=== PATIENT | female | born 1965 | race Caucasian/White ===

== ENCOUNTER 2016-12-14 13:10 | Inpatient (IN) | payer OTHER ==
[~2016-12-14] VITALS: Ht 167.6 cm; Wt 102.3 kg
[~2016-12-14 13:10] MED LIST: ASPIR 8181 M1 PO; ASPIRIN325 MG PO; Biotin PO; CALCIUM 600 +1 EAC1 PO; CRESTOR10 MG PO; DIM PO; FISH OIL 1,2001 EAC4 PO; FLONASE16 G1 BOTH NARES; LOSARTAN POTASS50 MG PO; NAMENDA5 MG PO; NOHOMEMEDS; OMEPRAZOLE20 MG PO; PLAQUENIL200 MG PO; VITAMIN D-32000 UNIT PO; VITAMIN D5000 UNIT PO; Vitamin B Complex PO; ZYRTEC10 M3 PO
[2016-12-14 15:42] LABS: HEMATOCRIT 38.8 % (36.0-46.0); MCH 31.4 PG (29.0-34.0); MCV 92.2 FL (83-99); MEAN PLAT.VOLUME 10.2 uM^3 (9.5-12.4); PLATELET COUNT 91 K/uL (156-360); RBC DIS.WIDTH-SD 40.9 % (39-53); RED BLOOD COUNT 4.21 M/uL (3.80-5.20)
[2016-12-14 15:46] LABS: CHLORIDE 104 mEq/L (99-109); POTASSIUM 4.5 mEq/L (3.7-5.4); SODIUM 138 mEq/L (136-147)
[2016-12-14 15:47] LABS: GLUCOSE 105 mg/dL (70-99)
[2016-12-14 15:49] LABS: ANION GAP 11 MEQ/L (2-14)
[2016-12-14 15:51] LABS: GFR ESTIMATE (CALCULATED) 56 mL/min/
[2016-12-14 15:52] LABS: UREA NITROGEN (BUN) 13 mg/dL (9-23)
[2016-12-14] MEDS ORDERED: VITAMIN D32000 UNI1 PO (16:27)
[2016-12-14] MEDS ORDERED: SPIRONOLACTONE25 MG PO (16:28)
[2016-12-14] MEDS ORDERED: CARVEDILOL25 MG PO (16:28)
[2016-12-14] MEDS ORDERED: FUROSEMIDE40 MG PO (16:29)
[2016-12-14] MEDS ORDERED: ENTRESTO 97 MG1 EACH PO (16:29)
[2016-12-14] MEDS ORDERED: ZANTAC300 MG PO (16:29)
[2016-12-14] MEDS ORDERED: PREVIDENT 500056 GM DT (16:30)
[2016-12-14] MEDS ORDERED: FISH OIL 1,2001 EAC4 PO (16:30)
[2016-12-14 20:59] VITALS: BP 120/70
[2016-12-14 23:52] VITALS: BP 106/52
[2016-12-15 04:00] VITALS: BP 110/56
[2016-12-15 07:39] VITALS: BP 115/74
[2016-12-15 15:44] VITALS: BP 119/56
[2016-12-15 19:44] VITALS: BP 129/54
[2016-12-16 00:01] VITALS: BP 138/63
[2016-12-16 03:54] VITALS: BP 133/64
[2016-12-16 07:46] VITALS: BP 114/47
[2016-12-16 11:38] VITALS: BP 112/52
[2016-12-16 14:00] LABS: HDL CHOLESTEROL 43 MG/DL (Desirable>=50); LDL CHOLESTEROL 87 mg/dL (Desirable<100); NON-HDL CHOLESTEROL 124 mg/dL (Desirable<160); TOTAL CHOLESTEROL 167 mg/dL (Desirable<200); TRIGLYCERIDES 183 MG/DL (Normal: <150)
[2016-12-16] MEDS ORDERED: CLOPIDOGREL75 MG PO (14:22)
[2016-12-16] MEDS ORDERED: TYLENOL REGULA325 MG PO (14:22)
[2016-12-17 09:54] LABS: Estimated Average Glucose 117 mg/dL (70-123); HEMOGLOBIN A1c (GLYCOHEMOGLOB) 5.7 % HGB (Below 5.7)
== END 2016-12-16 15:00 | disposition home or self-care (01) | DRG 65 ==
LOC: EME 13:10 → EDOF 18:20 → 5SOUTH 20:55
PROVIDERS: Internal Medicine; Specialist
DX: I63.9 Cerebral infarction, unspecified (principal); I11.0 Hypertensive heart disease with heart failure; M32.9 Systemic lupus erythematosus, unspecified; I50.9 Heart failure, unspecified; G81.91 Hemiplegia, unspecified affecting right dominant side; E66.9 Obesity, unspecified; Z68.36 Body mass index [BMI] 36.0-36.9, adult; R29.810 Facial weakness; F17.210 Nicotine dependence, cigarettes, uncomplicated; J32.9 Chronic sinusitis, unspecified; J34.2 Deviated nasal septum; R20.2 Paresthesia of skin; R51 Headache
CPT/HCPCS: 70450; 70551; 71020; 80048; 80061; 83036; 85027; 93005; 93880; 99281; 99285; J1650

== ENCOUNTER 2017-06-26 15:27 | Emergency (ER) | payer OTHER ==
[~2017-06-26] VITALS: Ht 167.6 cm; Wt 101.6 kg
[~2017-06-26 15:27] MED LIST changes: +CARVEDILOL25 MG PO; +CLOPIDOGREL75 MG PO; +ENTRESTO 97 MG1 EACH PO; +FUROSEMIDE20 MG PO; +PREVIDENT 500056 GM DT; +SPIRONOLACTONE25 MG PO; +TYLENOL REGULA325 MG PO; +VITAMIN D32000 UNI1 PO; +ZANTAC300 MG PO
[2017-06-26 16:02] LABS: MCH 31.6 PG (29.0-34.0); MCHC 33.8 G/DL (30.0-36.0); MCV 93.3 FL (83-99); RBC DIS.WIDTH-CV 11.8 % (11.8-14.6); RBC DIS.WIDTH-SD 40.5 % (39-53); RED BLOOD COUNT 4.18 M/uL (3.80-5.20); WHITE BLOOD COUNT 5.6 K/uL (4.1-10.2)
[2017-06-26 16:11] LABS: CHLORIDE 105 mEq/L (99-109); POTASSIUM 3.7 mEq/L (3.7-5.4); SODIUM 140 mEq/L (136-147)
[2017-06-26 16:12] LABS: GLUCOSE 85 mg/dL (70-99)
[2017-06-26 16:14] LABS: ANION GAP 9 MEQ/L (2-14)
[2017-06-26 16:16] LABS: GFR ESTIMATE (CALCULATED) 50 mL/min/
[2017-06-26 16:17] LABS: UREA NITROGEN (BUN) 17 mg/dL (9-23)
[2017-06-26 16:20] LABS: TROP-I INTERPRETATION NEGATIVE; TROPONIN-I < 0.01 ng/mL (0.0-0.30)
[2017-06-26 16:49] LABS: HEMATOLOGY COMMENT 1 SN; IMM.PLATELET FRACTION 10.4 (1-7); MEAN PLAT.VOLUME 11.3 uM^3 (9.5-12.4); PLAT.SUFFICIENCY VERY DECREASED; PLATELET COUNT 46 K/uL (156-360)
[2017-06-26 19:21] VITALS: BP 143/74
[2017-06-26] MEDS ORDERED: CLOPIDOGREL75 MG PO (21:51)
[2017-06-26] MEDS ORDERED: EXTRA STRENGTH500 M1 PO (21:53)
[2017-06-26] MEDS ORDERED: TOPAMAX25 MG PO (21:55)
[2017-06-26] MEDS ORDERED: NEURONTIN300 MG PO (21:55)
== END 2017-06-26 19:22 | disposition left against medical advice (07) ==
LOC: EME 15:27
DX: R07.89 Other chest pain (principal); R00.2 Palpitations; R51 Headache; R06.00 Dyspnea, unspecified; I10 Essential (primary) hypertension; Z86.73 Personal history of transient ischemic attack (TIA), and cerebral infarction without residual deficits; Z88.0 Allergy status to penicillin; Z90.710 Acquired absence of both cervix and uterus; Z87.891 Personal history of nicotine dependence; Z53.29 Procedure and treatment not carried out because of patient's decision for other reasons
CPT/HCPCS: 71020; 80048; 84484; 85027; 93005; 99281; 99284

== ENCOUNTER 2017-06-26 20:08 | Observation (INO) | payer OTHER ==
[~2017-06-26] VITALS: Ht 167.6 cm; Wt 101.9 kg
[2017-06-26] MEDS ORDERED: CLOPIDOGREL75 MG PO (21:51)
[2017-06-26] MEDS ORDERED: EXTRA STRENGTH500 M1 PO (21:53)
[2017-06-26] MEDS ORDERED: NEURONTIN300 MG PO (21:55)
[2017-06-26] MEDS ORDERED: TOPAMAX25 MG PO (21:55)
[2017-06-26 23:00] LABS: TROP-I INTERPRETATION NEGATIVE; TROPONIN-I 0.02 ng/mL (0.0-0.30)
[2017-06-27 01:22] VITALS: BP 128/58
[2017-06-27 01:41] LABS: TROP-I INTERPRETATION NEGATIVE; TROPONIN-I 0.01 ng/mL (0.0-0.30)
[2017-06-27 04:21] VITALS: BP 110/55
[2017-06-27 06:48] LABS: TROP-I INTERPRETATION NEGATIVE; TROPONIN-I 0.02 ng/mL (0.0-0.30)
[2017-06-27 07:43] VITALS: BP 110/54
[2017-06-27 08:00] VITALS: BP 109/72
[2017-06-27 10:47] VITALS: BP 138/62
== END 2017-06-27 13:43 | disposition home or self-care (01) ==
LOC: EME 20:08 → RME 20:08 → EDOF 22:28 → 5WEST 22:28 → EDOF 22:28 → ENRESERV 22:42 → ENPENDDIS 06-27 → EDOF 06-27 00:37 → 5WEST 06-27 00:40
PROVIDERS: Family Medicine; Physician Assistant
DX: R07.9 Chest pain, unspecified (principal); I11.0 Hypertensive heart disease with heart failure; I50.9 Heart failure, unspecified; I25.10 Atherosclerotic heart disease of native coronary artery without angina pectoris; Z86.73 Personal history of transient ischemic attack (TIA), and cerebral infarction without residual deficits; E78.5 Hyperlipidemia, unspecified; K21.9 Gastro-esophageal reflux disease without esophagitis; G47.00 Insomnia, unspecified; M32.9 Systemic lupus erythematosus, unspecified; G43.909 Migraine, unspecified, not intractable, without status migrainosus; M19.90 Unspecified osteoarthritis, unspecified site; Z87.891 Personal history of nicotine dependence; Z82.49 Family history of ischemic heart disease and other diseases of the circulatory system; Z88.0 Allergy status to penicillin; Z88.2 Allergy status to sulfonamides; Z88.1 Allergy status to other antibiotic agents; Z91.09 Other allergy status, other than to drugs and biological substances; Z79.82 Long term (current) use of aspirin; Z79.02 Long term (current) use of antithrombotics/antiplatelets
CPT/HCPCS: 84484; 93005; 99281; 99285; G0378

== ENCOUNTER 2017-12-04 10:23 | Day surgery (SDC) | payer OTHER ==
[~2017-12-04] VITALS: Ht 167.6 cm; Wt 91.0 kg
[~2017-12-04 10:23] MED LIST changes: +EXTRA STRENGTH500 M1 PO; +NEURONTIN300 MG PO; +TOPAMAX25 MG PO
[2017-12-04 10:55] VITALS: BP 114/55
[2017-12-04 11:28] LABS: INTER. NORMALIZED RATIO 1.3
[2017-12-04 11:31] LABS: PTT 62.3 SEC (25-37)
== END 2017-12-04 11:00 | disposition home or self-care (01) ==
LOC: SDC 10:23
PROVIDERS: Surgery
DX: K80.20 Calculus of gallbladder without cholecystitis without obstruction (principal); R94.31 Abnormal electrocardiogram [ECG] [EKG]; D69.6 Thrombocytopenia, unspecified; Z53.09 Procedure and treatment not carried out because of other contraindication
CPT/HCPCS: 85049; 85610; 85730

== ENCOUNTER → 2018-01-01 | Outpatient (CLI) | payer OTHER ==
[~2018-01-01] VITALS: Ht 167.6 cm; Wt 92.0 kg
[~2018-01-01] MED LIST changes: +CALCIUM600 M1 PO; +NORCO 5/3251 TABLET PO
[2018-01-01 11:57] VITALS: BP 136/64
[2018-01-01 12:53] VITALS: BP 131/60
[2018-01-01 14:12] VITALS: BP 132/61
[2018-01-01 14:31] VITALS: BP 128/63
[2018-01-01 15:55] VITALS: BP 147/65
== END | disposition home or self-care (01) ==
LOC: IVINF 11:30
DX: D69.6 Thrombocytopenia, unspecified (principal)
CPT/HCPCS: 36430; 86999; 96374; J1200

== ENCOUNTER 2018-01-03 07:53 | Day surgery (SDC) | payer OTHER ==
[~2018-01-03] VITALS: Ht 167.6 cm; Wt 90.7 kg
[~2018-01-03 07:53] MED LIST changes: -NORCO 5/3251 TABLET PO
[2018-01-03 08:28] VITALS: BP 135/61
[2018-01-03] MEDS ORDERED: NORCO 5/3251 TABLET PO (11:14)
[2018-01-03 12:27] VITALS: BP 141/64
[2018-01-03 13:34] VITALS: BP 160/67
== END 2018-01-03 13:40 | disposition home or self-care (01) ==
LOC: SDC 07:53
PROC: BF141ZZ Fluoroscopy of Gallbladder, Bile Ducts and Pancreatic Ducts using Low Osmolar Contrast (ICD-10-PCS; principal; 2018-01-03)
PROC: 0FT44ZZ Resection of Gallbladder, Percutaneous Endoscopic Approach (ICD-10-PCS; principal; 2018-01-03)
DX: K80.10 Calculus of gallbladder with chronic cholecystitis without obstruction (principal); D69.6 Thrombocytopenia, unspecified; M32.9 Systemic lupus erythematosus, unspecified; I25.2 Old myocardial infarction; I10 Essential (primary) hypertension; E78.5 Hyperlipidemia, unspecified; Z86.73 Personal history of transient ischemic attack (TIA), and cerebral infarction without residual deficits; M19.90 Unspecified osteoarthritis, unspecified site; M54.5 Low back pain; Z90.710 Acquired absence of both cervix and uterus; Z72.0 Tobacco use; Z82.49 Family history of ischemic heart disease and other diseases of the circulatory system; Z88.0 Allergy status to penicillin; Z88.2 Allergy status to sulfonamides; Z88.1 Allergy status to other antibiotic agents; Z91.013 Allergy to seafood
CPT/HCPCS: 74300; 85049; 88304; C1769; J0131; J1100; J1170; J1885; J2250; J2405; J2710; J3010; J7643; S0020

== ENCOUNTER 2018-03-06 00:38 | Emergency (ER) | payer OTHER ==
[~2018-03-06] VITALS: Ht 167.6 cm; Wt 103.0 kg
[~2018-03-06 00:38] MED LIST changes: +NORCO 5/3251 TABLET PO
[2018-03-06 02:08] LABS: BASOPHIL (%) 0.3 % (0-1); EOSINOPHIL (%) 3.4 % (0-5); EOSINOPHIL COUNT 0.2 K/uL (0-0.3); HEMATOCRIT 33.4 % (36.0-46.0); HEMOGLOBIN 11.3 G/DL (11.9-15.5); IMMATURE GRANULOCYTE (%) 0.3 % (0.0-0.7); LYMPHOCYTE (%) 34.9 % (15-42); LYMPHOCYTE COUNT 2.2 K/uL (1.0-2.8); MCH 31.9 PG (29.0-34.0); MCHC 33.8 G/DL (30.0-36.0); MCV 94.4 FL (83-99); MONOCYTE (%) 9.1 % (3-12); MONOCYTE COUNT 0.6 K/uL (0-0.8); NEUTROPHIL COUNT 3.2 K/uL (1.8-6.4); PLATELET COUNT 61 K/uL (156-360); RBC DIS.WIDTH-CV 12.2 % (11.8-14.6); RBC DIS.WIDTH-SD 42.5 % (39-53); RED BLOOD COUNT 3.54 M/uL (3.80-5.20); WHITE BLOOD COUNT 6.2 K/uL (4.1-10.2)
[2018-03-06 02:19] LABS: ALBUMIN 3.6 g/dL (3.2-4.8); CHLORIDE 107 mEq/L (99-109); POTASSIUM 4.2 mEq/L (3.7-5.4); SODIUM 139 mEq/L (136-147)
[2018-03-06] MEDS ORDERED: LASIX20 MG PO (02:20)
[2018-03-06] MEDS ORDERED: ENTRESTO 97 MG1 EACH PO (02:21)
[2018-03-06 02:22] LABS: GLUCOSE 102 mg/dL (70-99); TOTAL PROTEIN 6.2 g/dL (6.4-8.3)
[2018-03-06] MEDS ORDERED: CRESTOR10 MG PO (02:22)
[2018-03-06 02:24] LABS: TOTAL BILIRUBIN 0.4 mg/dL (0.0-1.0)
[2018-03-06 02:25] LABS: ALKALINE PHOSPHATASE 114 IU/L (3-129); CREATININE 1.4 mg/dL (0.6-1.3); GFR ESTIMATE (CALCULATED) 42 mL/min/
[2018-03-06 02:26] LABS: UREA NITROGEN (BUN) 21 mg/dL (9-23)
[2018-03-06 02:27] LABS: AST (GOT) 23 IU/L (2-34)
[2018-03-06 02:28] LABS: ALT (GPT) 23 IU/L (3-49); CREATINE KINASE 108 IU/L (1-294); TOTAL CK 108 IU/L (1-294)
[2018-03-06 02:34] LABS: TROP-I INTERPRETATION NEGATIVE; TROPONIN-I < 0.01 ng/mL (0.0-0.30)
[2018-03-06 02:35] LABS: CK-MB 1.6 ng/mL (0.0-4.9); CKMB RELATIVE INDEX 1.5 (0.0-3.9)
[2018-03-06 03:08] LABS: APPEARANCE CLEAR ((CLEAR)); BILIRUBIN NEGATIVE; BLOOD NEGATIVE; COLOR YELLOW ((YELLOW)); GLUCOSE (STRIP) NEGATIVE; KETONES NEGATIVE; LEUKOCYTES MODERATE; NITRITE NEGATIVE; PROTEIN (STRIP) NEGATIVE; SPECIFIC GRAVITY 1.014 (1.000-1.030); UROBILINOGEN 0.2 MG/DL (0.2-1.0)
[2018-03-06 03:23] LABS: BACTERIA NONE SEEN /HPF; EPITHELIAL CELLS RARE /HPF; MUCUS NONE SEEN /LPF; RED BLOOD CELLS 0-5 /HPF (0-5); UCUL ADDED? YES
[2018-03-06 03:34] VITALS: BP 111/39
== END 2018-03-06 03:37 | disposition home or self-care (01) ==
LOC: EME → EDBD 00:38 → EME 00:38
PROVIDERS: Emergency Medicine
DX: G40.909 Epilepsy, unspecified, not intractable, without status epilepticus (principal); Z86.73 Personal history of transient ischemic attack (TIA), and cerebral infarction without residual deficits; I50.9 Heart failure, unspecified; M32.9 Systemic lupus erythematosus, unspecified; F17.200 Nicotine dependence, unspecified, uncomplicated; Z88.2 Allergy status to sulfonamides; Z88.0 Allergy status to penicillin
CPT/HCPCS: 70450; 80053; 81003; 82550; 82553; 84484; 85025; 87086; 93005; 99281; 99284; J7030